=== PATIENT | male | born 1980 | race Caucasian/White ===

== ENCOUNTER 2020-01-13 17:50 | Inpatient (IN) | payer BC, OTHER ==
[2020-01-13] VITALS (10 sets, daily range): BP systolic 106–155; BP diastolic 56–92
[~2020-01-13] VITALS: Ht 188 cm; Wt 94.0 kg
--- NOTE | ~2020-01-13 | HC ---
[facility] [place] [address] CONSULTATION Name: HEIDI KONG RAY Room #: 239- ADM IN M.R.#: [id number] Admission: 01/13/20 Attend Phys: James Tsang MD Discharge: Date of : 76 Report #: [id number] THIS REPORT FOR: cc: FAM - Family physician unknown FAM - Family physician unknown Rose Mary Chapman MD ~ CC: [facility] unknown James Tsang REASON FOR CONSULTATION: Isopropyl ingestion. REASON FOR PRESENTATION: Those are obtained from the medical chart as the patient is currently intubated. He was brought because of an ingestion of isopropyl alcohol. HISTORY OF PRESENT ILLNESS: This is obtained from the medical chart. A 39-year-old with history of alcohol abuse. He was found down and unresponsive with an empty 32 ounces bottle of 91% isopropyl alcohol. It looks like that this was a suicidal attempt. Further details are not available. The patient is known to have chronic alcohol and methamphetamine abuse. PAST MEDICAL HISTORY: Alcohol abuse. PAST SURGICAL HISTORY: Unobtainable given the patient's current mental status. REVIEW OF SYSTEMS: Unobtainable given the patient's current mental status. ALLERGIES: Unable to assess. MEDICATIONS: No available outpatient medications. FAMILY HISTORY: Not able to obtain given the patient's current mental status. PHYSICAL EXAMINATION: VITAL SIGNS: Temperature 36.9, blood pressure is 109/54. HEAD AND NECK: No jugular venous distention. CHEST: Decreased air entry bilaterally. CARDIOVASCULAR: Regular with no rub detected. ABDOMEN: Soft, nontender. EXTREMITIES: Lower extremities, no edema. LABORATORY DATA: Reviewed. White blood cell count is 10.4, hemoglobin is 16.5. Serum osmolarity is pending. Creatinine is up to 2.4, calcium 7.9. Beta hydroxybutyrate is negative. Urine is negative. Serum toxicology screen is pending. IMPRESSION AND PLAN: [facility] [address] [place] [address] CONSULTATION Name: HEIDI KONG DRUMMOND Room #: 239-P [facility]#: [id number] Admission: 01/13/20 Attend Phys: James Tsang MD Discharge: Date of : 76 Report #: [id number] 1. Acute kidney injury. 2. Isopropyl alcohol ingestion. The main stay of treatment for isopropyl alcohol ingestion is supportive therapy with IV fluid, rectifying the electrolytes. The patient is not in need for any dialysis. He is beyond decontamination and lavaged therapy. Continue to monitor his electrolytes. Continue intravenous IV fluid. Continue to monitor his urine output. Hemodialysis and fomepizole have no role in the treatment of isopropyl alcohol ingestion. 3. We will follow his osmolarity study and continue to follow during his hospital stay. By: [id number] Rose Mary Chapman MD /nt
[2020-01-13 18:14] LABS: HEMATOCRIT 54.9 % (42.0-52.0); HEMOGLOBIN 18.1 gm/dL (14.0-18.0); MCV 93.9 fL (80.0-100.0); RBC 5.85 mil/uL (4.50-6.00); RDW 13.6 % (10.5-14.5); WBC 10.4 thou/uL (4.0-11.0)
[2020-01-13 18:24] LABS: ANION GAP 4 mmol/L (7-16); BUN 11 mg/dL (7-18); CALCIUM 8.5 mg/dL (8.5-10.1); CHLORIDE 100 mmol/L (98-107); CO2 32 mmol/L (21-32); CREATININE 1.2 mg/dL (0.7-1.3); GLUCOSE 130 mg/dL (74-106); POTASSIUM 4.2 mmol/L (3.5-5.1); SALICYLATE < 2.8 mg/dL (2.8-20.0); SODIUM 136 mmol/L (136-145)
[2020-01-13 18:54] LABS: BE(vivo) -1.8 mmol/L (-2 to +3); HCO3 23.7 mmol/L (22.0-26.0); PCO2 42.8 mmHg (35.0-45.0); PO2 409.3 mmHg (80.0-100.0); pH 7.361 (7.360-7.450); sO2 99.8 % (92.0-98.0)
[2020-01-13 19:09] LABS: URINE BILIRUBIN NEGATIVE (Negative); URINE BLOOD NEGATIVE (Negative); URINE CLARITY CLEAR; URINE COLOR YELLOW; URINE GLUCOSE-RANDOM* NEGATIVE (Negative); URINE KETONES NEGATIVE (Negative); URINE LEUKOCYTES-REFLEX NEGATIVE (Negative); URINE NITRITE-REFLEX NEGATIVE (Negative); URINE PROTEIN (DIPSTICK) NEGATIVE (Negative); URINE SPECIFIC GRAVITY >= 1.030 (1.005-1.035); URINE UROBILINOGEN 0.2 E.U./dl (0.2-1.0)
[2020-01-13 19:20] LABS: AMP/METHAMP Negative (Negative); BARBITURATES Negative (Negative); BENZODIAZEPINES POSITIVE (Negative); COCAINE Negative (Negative); METHADONE Negative (Negative); OPIATES Negative (Negative); PCP Negative (Negative)
--- NOTE | 2020-01-13 20:45 | NUR ---
Pt rec'd from ER with dx: Isopropyl Alcohol overdose. Pt sedate upon arrival on propofol gtt. Pt agitated w/ forceful cough upon transfer to ICU bed. Pt very strong. Bilateral soft wrist restraints placed for pt safety. Pt resisting care. VSS. SR 1st degree per monitor. Normothermic. # 8.0 ETT 29cm at lip. AC 16/550/60%/5. Pt with copious oral secretions. Blood tinged secretions via ETT. Lungs clear. BS active. Small stool. Chlorhexidine bath given. OG at 56cm to LIS with blood tinged secretions. Delgadillo catheter with clear yellow urine. Field stick PIV right and left AChSlomo Fang TESTER EQUIPMENT to round on pt. Awaiting Isopropyl Alcohol level. See admission H&P. in to see patient. Update given. Pt took belongings home with her.
[2020-01-14] VITALS (24 sets, daily range): BP systolic 104–139; BP diastolic 53–77
--- NOTE | 2020-01-14 00:25 | NUR ---
Dr. Betty cruz placed for isopropyl alcohol overdose as we are unable to find out isopropyl alcohol level as it has been sent out. After consult called, lab called ICU with critical Isopropyl alcohol level of 151 mg/dl. Dialysis recommended by poison control for level >200. Acetone level 64 mg/dl. Kenya Fang APRN given results, no new orders rec'd.
--- NOTE | 2020-01-14 01:04 | NUR ---
Dr. Mueller spoke directly to Madison Fang APRN. Will continue to monitor closely and repeat chemistry in the am.
[2020-01-14 05:33] LABS: HEMATOCRIT 50.2 % (42.0-52.0); HEMOGLOBIN 16.5 gm/dL (14.0-18.0); MCH 30.7 pg (26.0-34.0); MCV 93.2 fL (80.0-100.0); RBC 5.38 mil/uL (4.50-6.00); RDW 13.7 % (10.5-14.5); WBC 10.4 thou/uL (4.0-11.0)
--- NOTE | 2020-01-14 05:47 | NUR ---
Shift summary: Pt less restless this am. No longer fighting restraints. Propofol decreased to 30 mcg/kg/min. Poorly responsive. Pt does not follow commands. VSS. Afebrile. AM labs pending. FiO2 decreased to 40%. No ABG or chest xray ordered. Lungs clear. Continues with moderate amt oral secretions. Small amt secretions via ETT. OG with blood tinged drng. Protonix ordered BID. Delgadillo with adequate clear yellow urine. Creatinine up to 2.4 this am. Plan of care reviewed and updated as able.
[2020-01-14 05:49] LABS: CALCIUM 7.9 mg/dL (8.5-10.1); PHOSPHORUS 3.8 mg/dL (2.5-4.9); POTASSIUM 4.2 mmol/L (3.5-5.1)
[2020-01-14 05:52] LABS: CREATININE 2.4 mg/dL (0.7-1.3)
--- NOTE | 2020-01-14 06:30 | NUR ---
Pt awake, agitated. Fighting restraints. Will open eyes on command. MAEW. Very strong. Nods head yes/no. Propofol titrated as needed. Report to oncoming shift.
--- NOTE | 2020-01-14 09:01 | EKG ---
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 : 1980 Requested By: Puneet Perez Order Number: [id number] MD: Liban Diane Measurements Intervals [place] Rate: 84 P: 13 IA: 233 QRS: 62 QRSD: 101 T: 58 QT: 367 QTc: 434 Interpretive Statements Sinus rhythm Prolonged IA interval Poor R-wave progression Borderline ST elevation, anterior leads clinical correlation suggested No previous ECG available for comparison Electronically Signed On 01-14-2020 9:00:44 BOTTLE WASHER by Liban Diane [email or web address] <ELECTRONICALLY SIGNED> By: Liban Diane MD 01/14/20899 15 15 Liban Diane MD /EPI
--- NOTE | 2020-01-14 09:20 | NUR ---
chart review. pt on vent. cm visited with candelaria, she was very tearful. active listing and support. intro to cm, dcp, and transition of care. per " he been drinking since he was 11yrs, his mom passed with overdose and his brother also. he has been sober for 1 year x 2 since we been 7 years. he [facility]. there is a rule no alcohol in our home, i should not have let. ne never been SI before. 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 no medication, does marijuana, he going to get order for that, but now doing meth before. drives, independent with ADl's. i told him i would come home if he would go to rehab and he agreed so when came home i found him and here he is. he looks like his brother when he was like this. thank you for visit"/. will cont following as needed for dc needs.
--- NOTE | 2020-01-14 16:44 | NUR ---
PT IS ISOPROPYL ALCOHOL OVERDOSE. AT BEDSIDE TODAY FOR SUPPORT. REMAINS ON THE VENT. ON PROPOFOL FOR SEDATION. LUNGS ARE CLEAR TO DIMINISHED. SINUS TACHYCARDIA ON THE MONITOR. CASANOVA IN PLACE. GREEN TINT COLOR URINE PRESENT. REMAINS IN RESTRAINTS. PHYSICALY PT IS STRONG AND RESIST TURNING AND REPOSITION. SCDS IN PLACE BILATERAL. NO ISSUES OR CONERNS NOTED PER NURSING. UPDATED POISION CONTROL ON PT'S STATUS. WILL CONTINUE TO ASSESS AND MONITOR AND PROGRESS TOWARDS GOALS
[2020-01-15] VITALS (22 sets, daily range): BP systolic 115–138; BP diastolic 62–83
--- NOTE | 2020-01-15 05:42 | NUR ---
Dr. Michael called re: pt need for high dose propofol for ventilator managment and agitation. Order rec'd for versed gtt.
[2020-01-15 06:16] LABS: ALBUMIN 3.1 g/dL (3.4-5.0); CALCIUM 7.8 mg/dL (8.5-10.1); CREATININE 1.9 mg/dL (0.7-1.3); PHOSPHORUS 2.2 mg/dL (2.5-4.9); POTASSIUM 3.9 mmol/L (3.5-5.1)
--- NOTE | 2020-01-15 06:37 | NUR ---
Propofol down to 25 mcg/kg/min iwth addition of versed gtt at 2 mg/hr. Pt repositioned for comfort, now resting quietly.
--- NOTE | 2020-01-15 06:54 | NUR ---
Pt again agitated sitting up in bed and fighting. Propofol gtt increased to 50 mcg/kg/min. Versed gtt at 2 mg/hr. Report to oncoming shift.
--- NOTE | 2020-01-15 10:22 | NUR ---
bedside nurse call provided report that pt in waiting area with paper work for his work needs to be filled out. also report from bedside nurse that his urine during [place] and possible he consumed antifreeze also, there is some missing and in different place in the garage per his candelaria. will cont following as needed for dc needs.
--- NOTE | 2020-01-15 17:05 | NUR ---
PT REMAINS ON THE VENT. SPOKE WITH DR. TAM AND DR. OROZCO IN REGARDS TO CARE. 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 RAN A TOXICOLOGY REPORT ON BOTH SINCE WE ARE NOT SURE. HE DIFFINITELY DRANK RUBBING ALCHOHOL. LUNGS ARE COARSE. NO BM ABDOMEN IS SOFT AND FLAT. CASANOVA REAMINS WITH FOREST GREEN URINE COLOR. CASE MANAGEMENT INVOLVED IN CARE. WILL CONTINUE ON GOING NURSING CARE AT THIS TIME. AND POISION CONTROL INVOLVED IN REPORTS.
[2020-01-16] VITALS (24 sets, daily range): BP systolic 106–148; BP diastolic 48–83
[2020-01-16 01:23] LABS: URINE BILIRUBIN 2+ (Negative); URINE BLOOD NEGATIVE (Negative); URINE CLARITY TURBID; URINE COLOR GREEN; URINE GLUCOSE-RANDOM* NEGATIVE (Negative); URINE KETONES NEGATIVE (Negative); URINE LEUKOCYTES-REFLEX NEGATIVE (Negative); URINE PROTEIN (DIPSTICK) 2+ (Negative); URINE SPECIFIC GRAVITY >= 1.030 (1.005-1.035)
[2020-01-16 01:25] LABS: URINE NITRITE-REFLEX POSITIVE (Negative)
[2020-01-16 02:01] LABS: AMORPHOUS URATES Moderate /LPF (None Seen); BACTERIA-REFLEX 1-9 Few /HPF (None Seen); CASTS None Seen /LPF (None Seen); MUCUS 0-3 Light strn/LPF (None Seen); SQUAMOUS 0-3 Few /LPF (0-3); URINE RBC 0-2 Rare /HPF (0-2); URINE WBC-REFLEX 0-5 Rare /HPF (0-5)
[2020-01-16 04:53] LABS: BE(vivo) -1.1 mmol/L (-2 to +3); HCO3 24.9 mmol/L (22.0-26.0); PCO2 46.4 mmHg (35.0-45.0); PO2 159.8 mmHg (80.0-100.0); pH 7.348 (7.360-7.450); sO2 98.9 % (92.0-98.0)
[2020-01-16 06:15] LABS: ALBUMIN 2.6 g/dL (3.4-5.0); CALCIUM 7.8 mg/dL (8.5-10.1); CREATININE 1.4 mg/dL (0.7-1.3); PHOSPHORUS 2.4 mg/dL (2.5-4.9); POTASSIUM 3.7 mmol/L (3.5-5.1)
--- NOTE | 2020-01-16 10:12 | NUR ---
cm notified x 3 that has arrived and is in icu waiting room with paper work that the dr needs to fill out and be taken to pt work by this tomorrow. cm met with and pt mom. cm education that when met with md today will ask dr to fill out bottom part of 1 paper from [employer] [facility]. pt candelaria filled out the top section and cm copy sheet for and will pass on page to MD today. will cont following as needed for dc needs. pt remains on vent. will cont following as needed for dc needs.
--- NOTE | 2020-01-16 10:15 | NUR ---
Nutrition: Pt NPO x 2 days. REC initiate enteral nutrition of Vital HP at 25 ml/hr and progress as tolerated to goal 55 mL/hr with current propofol demands. Replace phos as appropriate.
--- NOTE | 2020-01-16 14:08 | NUR ---
WEANING TRIAL TODAY BEGINNING AT 1430, SEDATION OFF.
[2020-01-16 16:21] LABS: BE(vivo) 3.9 mmol/L (-2 to +3); HCO3 29.2 mmol/L (22.0-26.0); PCO2 46.3 mmHg (35.0-45.0); PO2 87.1 mmHg (80.0-100.0); pH 7.417 (7.360-7.450); sO2 96.7 % (92.0-98.0)
[2020-01-17] VITALS (18 sets, daily range): BP systolic 89–124; BP diastolic 42–71
[2020-01-17 06:09] LABS: ALBUMIN 2.6 g/dL (3.4-5.0); CREATININE 1.1 mg/dL (0.7-1.3); PHOSPHORUS 2.6 mg/dL (2.5-4.9); POTASSIUM 3.4 mmol/L (3.5-5.1)
--- NOTE | 2020-01-17 08:40 | NUR ---
pt in bed, eyes closed. sitter at bedside 1:1, wei consulted. checked pt chart and never came back yesterday to get the letter for his work. will cont following as needed for dc needs.
--- NOTE | 2020-01-17 09:58 | NUR ---
PT CALM AND COOPERATIVE THIS AM. DENIES SUICIDAL IDEATION. DR FELDER HERE FOR CONSULT. 1:1 PILE DRIVING SETTER CONTINUED. ORDER TO TRANSFER TO MED/SURG WITH SITTER. STARTED ON REGULAR DIET TOLERATING WELL. PER DR FELDER PT OK TO HAVE 1 HOUR OF SUPERVISED VISITATION WITH HIS PER DAY BUT NO PHONE USE AT THIS TIME. WILL CONTINUE TO CLOSELY MONITOR PATIENT.
--- NOTE | 2020-01-17 17:28 | NUR ---
PT HERE AT BEDSIDE FOR 1 HR VISITATION TIME. PT AND TEARFUL. ORDER TO TRANSFER TO MED/SURG WITH 1:1 SITTER. CASANOVA CATH DISCONTINUED THIS AFTERNOON.
[2020-01-17 19:08] LABS: TRICYCLIC (TCA) CONFIRMATION Negative ng/mL (Cutoff=100)
--- NOTE | 2020-01-18 03:03 | NUR ---
patient aox3 makes needs known. patient has a flat affect, poor eye contact, good grooming and hygiene. patient had a shower this shift. patient is on 1:1 for sucidal idealation. patient denied all pych issues this shift. patient appetite and sleep is good. patient in bed asleep a this time breathing regular and unlaboured.
[2020-01-18 07:34] VITALS: BP 115/72
--- NOTE | 2020-01-18 08:06 | NUR ---
Followup: extubated and has transferred out of ICU. Diet advanced and eating >50% meals. Wt stable. Renal status improved. Pending transfer to inpatient psych. Change nutrition status to low nutrition risk
--- NOTE | 2020-01-18 12:34 | NUR ---
ORDERS RECEIVED FOR PT EVAL AND TREAT. Pt LIVES IN HOME WITH . ONE STEP TO ENTER. 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 INDEP WITH ADLs. DRIVES. Pt ADMITTED FOR SUICIDE ATTEMPT VIA CONSUMING RUBBING ALCOHOL AND POSSIBLY ANTIFREEZE. Pt WITH BILAT LE STRENGTH 5/5. INDEP WITH BED MOBILITY AND SIT<>STAND. AMB 250 FT WITH IV POLE AND W/O AD WITH SUPERVISION. RETROSTEPPING COMPLETED WITH SUPERVISION. STOOD IN ROMBER[place] STANCE FOR 10 SECONDS WITH EYES CLOSED WITH MILD SWAY BUT NO LOB AND GOOD REACTIVE BALANCE STRATEGIES NOTED AT HIPS/ANKLES. Pt CURRENTLY HAS SITTER 1:1. NO ACUTE PT NEEDS IDENTIFIED. RECOMMEND AMB WITH NURSING STAFF SBA/SUPERVISION FOR SAFETY. ACUTE PT TO SIGN OFF.
[2020-01-18] MEDS ORDERED: VITAMIN B-1100 M2 PO (12:45)
[2020-01-18] MEDS ORDERED: FOLIC ACID1 MG PO (12:45)
[2020-01-18] MEDS ORDERED: PROTONIX40 M2 PO (12:45)
--- NOTE | 2020-01-18 16:42 | NUR ---
PT CARE ASSUMED APPROX 0700. ASSESSMENT CHARTED. PT DENIES PAIN AND SOA. VSS. UP WITH STEADY GAIT. SITTER REMAINS TO BEDSIDE. PT APPROVED FOR DISCHARGE. CASE MANAGEMENT WORKING ON GETTING PT TO FACILITY AT THIS TIME. WILL F/U FOR DISCHARGE THIS EVENING IF POSSIBLE. CAME TO BEDSIDE FOR ALLOWED HR. DR EFLDER WANTS TO CONTINUE TO RESTRICT PT'S PHONE PRIVILEGES FOR NOW. THIS NURSE INQUIRED PER PT'S REQUEST. NO DISTRESS NOTED.
--- NOTE | 2020-01-18 16:47 | NUR ---
DISCHARGE TO INPATIENT MENTAL HEALTH IN PROCESS. ANTICIPATED DISCHARGE TO [facility] INPATIENT MENTAL HEALTH UNIT. PATIENTS [facility] PCS FORM COMPLETED AND FAXED TO [facility]. CALL PLACED TO 4W TO NOTIFYMELINA. SHOULD BED BECOME AVAILABLE AT [facility] AND PATIENT DISCHARGRE ORDERS COMPLETED PLEASE CONTACT [facility] TO SET UP NON EMERGENT TRANSPORTATION TO [facility]. [facility] CONTACT NUMBER IS LOCATED ON THE FRONT TOP PORTION OF THE PCS FORM. [facility] CONTACT NUMBER IS [phone] [place] INTAKE NUMBER [phone] FAX NUMBER [phone]. PLEASE FAX COMPLETED DISCHARGE ORDERS TO ABOVE FAX NUMBER. THANK YOU
--- NOTE | 2020-01-18 17:29 | NUR ---
Spoke with patient and at bedside. Patient is voluntary to transfer to [facility] (his choice for psych tx) reports he had an appointment with them prior to attempt and has been there in past. Faxed pertinent information. SP with Dr Hartmann. Sp with Maria Dolores at [facility]. Patient accepted by Dr Carter. Rn called report. [facility] for 1714. Chart copy completed. Notified and patient of transfer time. [place] form completed and on chart copy.
--- NOTE | 2020-01-18 17:46 | NUR ---
PT TO DISCHARGE THIS EVENING. REPORT CALLED TO JACI AT RECEIVING FACILITY. JACI DENIED QUESTIONS OR CONCERNS REGARDING PT'S POC. [facility] FIRE TO TRANSPORT. WILL MONITOR PT UNITL TRANSPORTATION ARRIVES. IV OUT. NO DISTRESS NOTED.
== END 2020-01-18 20:27 | DRG 917 ==
LOC: ER 17:50 → EROBS 19:48 → ICU 19:48 → 4W 01-17 18:50
PROVIDERS: Emergency Medicine; Hospitalist; Internal Medicine Pulmonary Disease; Nurse Practitioner Acute Care; ADMIT Internal Medicine
PROC: 0BH17EZ Insertion of Endotracheal Airway into Trachea, Via Natural or Artificial Opening (ICD-10-PCS; principal; 2020-01-13)
PROC: 5A1945Z Respiratory Ventilation, 24-96 Consecutive Hours (ICD-10-PCS; principal; 2020-01-13)
DX: T51.2X2A Toxic effect of 2-Propanol, intentional self-harm, initial encounter (principal); J96.01 Acute respiratory failure with hypoxia; G93.41 Metabolic encephalopathy; N17.9 Acute kidney failure, unspecified; F32.9 Major depressive disorder, single episode, unspecified; F17.220 Nicotine dependence, chewing tobacco, uncomplicated; F39 Unspecified mood [affective] disorder; F12.90 Cannabis use, unspecified, uncomplicated; F10.20 Alcohol dependence, uncomplicated; F20.9 Schizophrenia, unspecified; Y92.89 Other specified places as the place of occurrence of the external cause; Z79.899 Other long term (current) drug therapy
CPT/HCPCS: 10040; 10078; 10203